=== PATIENT | female | born 1955 | race Caucasian/White ===

== ENCOUNTER 2025-06-11 09:52 | Outpatient (CLI) | payer OTHER, SELFPAY ==
--- NOTE | ~2025-06-11 | MR_ITS ---
MRI of the right shoulder Technique: Axial proton-density fat-sat images, coronal proton density fat-sat and T2 fat-sat images, and sagittal T1-weighted and T2 fat-sat images were acquired. Clinical History: Pain Findings: There is [id number] AC joint degenerative change. Coracoclavicular, coracoacromial, a nd coracohumeral ligaments are intact. There is a 2.2 x 2.0 cm full-thickness tear involving the majority of the supraspinatus tendon. Infra spinatus tendon is intact, with moderate tendinosis. Subscapularis tendon is intact. Tendon of the lo ng head of the biceps is intact. No labral tear evident. Inferior glenohumeral ligament is intact. There is moderate to large glenohumeral joint effusion, wit h fluid passing through the rotator cuff defect into the subacromial/subdeltoid bursa. No degenerativ e change of the glenohumeral joint. No muscle atrophy or edema. Impression: 2.2 x 2.0 cm full-thickness tear involving nearly the entirety of the supraspinatus tendon. Moderate infraspinatus tendinosis. Glenohumeral joint effusion with fluid passing through the rotator cuff defect into the subacromial/s ubdeltoid bursa. Mild to moderate AC joint degenerative change. Reviewed, dictated and finalized at [facility]. Impression: 2.2 x 2.0 cm full-thickness tear involving nearly the entirety of the supraspin atus tendon. Moderate infraspinatus tendinosis. Glenohumeral joint effusion with fluid passing through the rotator cuff defect into the subacromial/subdeltoid bursa. Mild to moderate AC joint degenerative change.
== END 2025-06-11 09:53 | disposition home or self-care (01) ==
PROVIDERS: PCP Nurse Practitioner Family; Visit Provider Nurse Practitioner Family
DX: M25.411 Effusion, right shoulder (principal); M19.011 Primary osteoarthritis, right shoulder
CPT/HCPCS: 73221